=== PATIENT | female | born 1975 ===

== ENCOUNTER 2021-10-28 12:58 | Outpatient (CLI) | payer OTHER, SELFPAY ==
--- NOTE | 2021-10-28 13:20 | CRLHL7_ITS ---
For Patients: As a result of the Cures Act, medical imaging exams and procedure reports are released immediately into your electronic medical record. You may view this report before your referring provider. If you have questions, please contact your health care provider. BILATERAL DIGITAL SCREENING MAMMOGRAM WITH COMPUTER-AIDED DETECTION AND TOMOSYNTHESIS CLINICAL HISTORY: Routine screening exam. COMPARISON: None. TECHNIQUE: Digital mammogram in CC and MLO projections including computer-aided detection (CAD) and tomosynthesis. BREAST COMPOSITION: The breasts are heterogeneously dense, which may obscure small masses FINDINGS: RIGHT Breast: No suspicious findings. LEFT Breast: Focal asymmetric density upper-outer quadrant 5 cm from the nipple. IMPRESSION: LEFT breast asymmetry/mass. RECOMMENDATIONS: Additional mammographic views of the LEFT breast including 3D spot-compression CC/MLO. LEFT breast ultrasound may also be required. The [facility] will contact the patient for follow-up. BI-RADS Category 0: Incomplete: Need Additional Imaging Evaluation and/or Prior Mammograms for Comparison. Dictated by Robi Funez MD @ 10/29/2021 8:34:38 AM/maida NICOLLE/Dictated by: Robi Funez MD @ 10/29/2021 8:34:00 AM (Electronically Signed)
== END 2021-10-28 12:59 | disposition home or self-care (01) ==
LOC: MAMMO 13:03
PROVIDERS: PCP Family Medicine; Visit Provider Nurse Practitioner Family
DX: Z12.31 Encounter for screening mammogram for malignant neoplasm of breast (principal); R92.2 Inconclusive mammogram; N63.20 Unspecified lump in the left breast, unspecified quadrant
CPT/HCPCS: 77063; 77067

== ENCOUNTER 2021-11-18 09:30 | Outpatient (CLI) | payer OTHER, SELFPAY ==
--- OUTSIDE RECORDS SUMMARY | 2021-11-18 09:32 | XMS_ITS | Clinical Summary ---
:1975 Author Organization [facility] [place] [address] Care Team Providers Name Role Phone Ben Murrell MD Primary Care Provider Allergies Active Allergy Reactions Severity Noted Date Comments Amlodipine Edema 09/20/2018 Medications Medication Sig Dispensed Refills Start Date End Date Status lisinopriL (PRINIVIL; Take 1 tablet by 90 tablet 3 10/26/2019 Active ZESTRIL) 10 mg mouth once daily. tabletIndications: Essential hypertension triamterene-hydrochloro Take 1 tablet by 90 tablet 3 0 Active thiazide, 37.5-25 mg, mouth every (MAXZIDE-25) 37.5-25 mg morning. tabletIndications: Essential hypertension Active Problems Problem Noted Date Essential hypertension 10/28/2017 Abnormal maternal glucose tolerance, antepartum 2008 Supervision of other normal 02/19/2008 Encounters Date Type Specialty Care Team Description 10/28/2021 Orders Only Scanner <No scans attac hed> 09/17/2021 Lab Requisition Ivania Wheat NP from Last 3 Months Immunizations Name Administration Dates Next Due Influenza, IIV3 (Age >=3 years) 01/22/2008 Tdap 08/13/2008 Family History Medical History Relation Name Comments Diabetes Father Heart attack Father Stroke Maternal Grandfather Diabetes Mother Relation Name Status Comments Father Maternal Grandfather Mother Social History Tobacco Use Types Packs/Day Years Used Date Never Smoker Smokeless Tobacco: Never Used Tobacco Cessation: Counseling Given: Yes Alcohol Use Standard Drinks/Week Comments No 0 (1 standard drink = 0.6 oz pure alcoho l) Sex Assigned at Date Recorded Not on file Obstetrics History Para Term AB IAB SAB Ectopic Multiple Living Live Births 2 1 1 1 Date Outcome GA Total Labor/2nd/3rd Weight Sex Delivery Anes PTL Maryam A 1 A5 Name Clin Labor 02/24 Term 40w 12h 00m/ 2.27 kg M Vag Le one /2000 0d (5 lb) l Last Filed Vital Signs Vital Sign Reading Time Taken Comments Blood Pressure 134/81 10/26/2019 7:38 AM CDT Pulse 63 10/26/2019 7:38 AM CDT Temperature 36.5 ??C (97.7 ??F) 10/26/2019 7:38 AM CDT Respiratory Rate - - Oxygen Saturation 98% 10/26/2019 7:38 AM CDT Inhaled Oxygen Concentration - - Weight 65.8 kg (145 lb) 10/26/2019 7:38 AM CDT Height 152 cm (4' 11.84) 10/26/2019 7:38 AM CDT Body Mass Index 28.47 10/26/2019 7:38 AM CDT Plan of Treatment Health Maintenance Due Date Last Done Comments COVID-19 vaccine series (#1) 1975 Hepatitis C screening for age 1202/05/1995 18-79 Tetanus booster 08/13/2018 08/13/2008 Depression screening for age 12+ 09/21/2019 09/20/2018, 02/2017, 09/14/2017, Additional history exists BMI (ht and wt on same day) for 10/25/2020 10/26/2019, 08/0 08/2018, age 18+ 10/28/2017, Additional history exists Influenza for age 9-49 10/15/2021 01/22/2008 Pap test for age 21-65 09/17/2024 09/17/2021, 09/17/2021, 12/18/2014, Additional history exists Tdap Completed 08/13/2008 Procedures Procedure Name Priority Date/Time Associated Comments Diagnosis SCAN-MAMMOGRAPHY 10/28/2021 12:00 AM Resu lts for this REPORT CDT procedure are i n the results section. TRACK DRESSER THIN PREP PAP Routine 09/17/2021 10:30 AM Res ults for this DIAGNOSTIC IMAGED CDT procedure are in the results section. HPV THIN PREP Routine 09/17/2021 10:30 AM Results for this CDT procedure are i n the results section. from Last 3 Months Results SCAN-MAMMOGRAPHY REPORT (10/28/2021 12:00 AM CDT) Narrative This result has an attachment that is no t available. Scanner OTHER TRACK DRESSER THIN PREP PAP DIAGNOSTIC IMAGED (09/17/2021 10:30 AM CDT) Component Value Ref Test Analysis Performed At [facility] gist Range Method Time Signature Case Report Gynecologic Cytology Report ? Case: [id number] ? 10/05/2021 [facility] Authorizing Provider: ??Ivania Ramos, RESIZER OPERATOR ? Collected: ? 09/17/2021 1030 ? 1:20 PM HEALTH Ordering Location: ? [facility] ?Received: ?09/18/2021 1103 ? CDT LABOR ATORY[facility] ? ENTRAL First Screen: ? Alden, Xon Lyle ? LABORATORY Specimen: ?TRACK DRESSER ThinPrep Vial Diagnostic, Cervical/Vaginal ? INTERPRETATION NEGATIVE FOR (none) 10/05/2021 [facility] E lectronically /RESULT INTRAEPITHELIAL 1:20 PM HEALTH sign ed by Alden, LESION OR CDT LABORATORY-C Xon Min g on MALIGNANCY (NIL) ENTRAL 09/15 at LABORATORY 1:20 PM SPECIMEN Satisfactory for evaluation 10/05/2021 [facility] ADEQUACY No endocervical component seen 1:20 PM HEALTH CDT LABORATORY-C ENTRAL LABORATORY HPV REQUEST HPV and PAP 10/05/2021 [facility] 1:20 PM HEALTH CDT LABORATORY-C ENTRAL LABORATORY Last Pap First Pap/Unknown 10/05/2021 [facility] Result 1:20 PM HEALTH CDT LABORATORY-C ENTRAL LABORATORY Rutledge Bx Done No 10/05/2021 [facility] Today 1:20 PM HEALTH CDT LABORATORY-C ENTRAL LABORATORY Additional 10/05/2021 [facility] Information 1:20 PM HEALTH CDT LABORATORY-C ENTRAL LABORATORY Comment: Interpreted at [facility], Central Laboratory - [address], [place] [address] Automated Review Successful 10/05/2021 1:20 PM CDT [facility] LABORATORY-CENTRAL L ABORATORY Comment: Specimen processed successfully by automated manager it security device, ThinPrep Imaging System, [employer] ANCILLARY TESTING HPV Ordered, 10/05/2021 1:20 PM [facility] TRACK DRESSER Please see CDT LABORATORY-CENTRAL separate report LABORATORY Note The pap test is a 10/05/2021 1:20 PM [facility] screening CDT LABORATORY-CENTRAL technique, not a LABORATORY diagnostic procedure. It is used primarily to screen for squamous cancers and precursor lesions. Published studies have shown that it is subject to both false negative and false positive results. The pap test should not be used as the sole means to diagnose or exclude pre-malignant and malignant lesions. Specimen Anatomical Collection Method Collection Time Receive d Time (Source) Location / / Volume Laterality Other 09/17/2021 10:30 09/18/2021 (Cervical/Vagina AM CDT 11:03 AM CD T l) Ivania Wheat NP PATHOLOGY/CYTOLOGY Performing Organization Address City/State/ZIP Code Phon e Number [facility] [employer] [address] [place] [address] LABORATORY-CENTRAL 2000 LABORATORY HPV HIGH RISK (09/17/2021 10:30 AM CDT) Analysis Performed At Patho logist Time Signature TYPE 16 Negative Negative 09/23/2021 [facility] 11:45 AM CDT LABORATORY-SALLY TRAL LABORATORY TYPE 18 Negative Negative 09/23/2021 [facility] 11:45 AM CDT LABORATORY-SALLY TRAL LABORATORY OTHER HIGH Negative Negative 09/23/2021 [facility] RISK TYPES 11:45 AM CDT LABORATORY-SALLY TRAL LABORATORY Specimen Anatomical Collection Method Collection Time Receive d Time (Source) Location / / Volume Laterality Other 09/17/2021 10:30 09/21/2021 4:09 (Cervical/Vagina AM CDT PM CDT l) Narrative [facility] LABORATORY-CENTRAL LABORAT ORY - 09/23/2021 11:45 AM CDT HPV types 16, 18, 31, 33, 35, 39, 45, 51, 52, 56, 58, 59, 66 and 68 DNA were undetectable or below the pre-set threshold. Methodology: Sara Hossein 4800 HPV Test Ivania Wheat NP MICROBIOLOGY Performing Organization Address City/State/ZIP Code Phon e Number [facility] [address] [place] [address] [place] [address] LABORATORY-CENTRAL 2000 LABORATORY from Last 3 Months Care Teams Data Entry Manager Relationship Specialty Start Date End Date Ben Murrell MD PCP - General 06/19/07 [address] [place] [address]
--- OUTSIDE RECORDS SUMMARY | 2021-11-18 09:32 | XMS_ITS | Encounter Summary ---
:1975 Author Reason for Visit None recorded. Assessment and Plan 1. Mammographic breast mass Relayed results of mammogram including presence of dense tissue which can make discernment of concern more difficult. W ill proceed with diagnostic mammogram and u/s per recs of VICK. She is agreeable to pro ceeding. She had no further questions. ? US, breast, unilateral - left; d/t ma ss found on routine mammogram ? MAMMO, diagnostic, digital, unilatera l - Left; d/t mass found on routine mammogram Discussion Note: None recorded.Patient educational handouts: No information available. Plan of Care Reminders Provider Appointments Established Patient 01/26/2022 Kervin Rodriguez MD 6:00PM Lab None recorded. ? ? Referral None recorded. ? ? Procedures None recorded. ? ? Surgeries None recorded. ? ? Imaging US, Breast, Unilateral 11/05/2021 ? ? MAMMO, Diagnostic, Digital, 11/05/2021 ? Unilateral Medications Name Start Date ? ? lisinopril 10 mg tablet ? TAKE ONE TABLET BY MOUTH EVERY DAY triamterene 37.5 mg-hydrochlorothiazide 25 mg tablet ? TAKE ONE TABLET BY MOUTH EVERY DAY Medications Administered None recorded. Vitals None recorded. Results Lab Results None recorded. Allergies Code Code System Name Reaction Severity Onset NKDA ? ? ? Problems Name Status Onset Date Source ? Essential Hypertension Active 07/28/2021 ? Procedures Date Name Performed by ? 11/05/2021 US, Breast, Unilateral Information not a vailable 11/05/2021 MAMMO, Diagnostic, Digital, Unilateral I nformation not available Notes: Tubal ligation after delivery Vaccine List Notes: vaccinated Social History Do you feel safe at home? Y Family History Relation Problem Onset Age of Age Notes Mother Diabetes mellitus (No Information) N/A (No No kishor) Father Diabetes mellitus (No Information) N/A all si b have diabetes Functional Status Unknown. Past Encounters 11/05/2021 Mammographic Breast Mass Ivania Wheat, ANP-BC: [address], [place] [address], Ph. History of Present Illness Note: <div>Author called pt with Vipin interpreting to discuss abn finding on mammogram result. </div> Review of Systems None recorded. Physical Exam None recorded.
--- OUTSIDE RECORDS SUMMARY | 2021-11-18 09:32 | XMS_ITS ---
:1975 Author Care Team Providers Name Role Phone Kervin Rodriguez Primary Care Provider Unavailable Allergies Code Code System Name Reaction Severity Status Onset NKDA ? Medications Name Status Start Date Stop Date ? ? lisinopril 10 mg tablet Active ? Not avai lable TAKE ONE TABLET BY MOUTH EVERY DAY triamterene 37.5 mg-hydrochlorothiazide 25 mg tablet Active ? Not available TAKE ONE TABLET BY MOUTH EVERY DAY Problems Name Status Onset Date Source ? Essential Hypertension Active 07/28/2021 ? Procedures Date Name Performed by ? 09/17/2021 MAMMO, Screening, Bilateral Information not available 11/05/2021 US, Breast, Unilateral Information not a vailable 11/05/2021 MAMMO, Diagnostic, Digital, Unilateral I nformation not available Notes: Tubal ligation after delivery Results Lab Results Date Name Specimen Result Interpretation Description Value Range Status Address ? 09/17/2021 Pap, LB + Reflex hr HPV ? No observation re corded. ? ? ? 07/01/2021 TSH, Serum or Plasma ? No observation recor ded. ? ? ? 07/01/2021 CBC W/ Auto Diff ? No observation recorded. ? ? ? 07/01/2021 CMP, Serum or Plasma ? No observation recor ded. ? ? ? 07/01/2021 Lipid Panel, Serum ? No observation recorde d. ? ? ? Past Encounters 11/05/2021 Mammographic Breast Mass SUSAN Enrique-BC: [address], [place] [address], Ph. 09/17/2021 Gynecologic Examination JOSE EnriqueBC: [address] [place] [address], Ph. 07/28/2021 Adult Health Examination; Essential Hype rtension Kervin Rodriguez MD: [address] [place] [address], Ph. 12/04/2020 Essential Hypertension Kervin Rodriguez MD: [address] [facility] [place] [address], Ph. Social History None recorded. Vaccine List Notes: vaccinated Plan of Care Patient Instructions avoid salt, losing wieght will reduce d iabetes risk Reminders Provider Appointments None recorded. ? ? Lab None recorded. ? ? Referral None recorded. ? ? Procedures None recorded. ? ? Surgeries None recorded. ? ? Imaging None recorded. ? ? Vitals 09/17/2021 10:00AM [facility] OFFICE VISIT Height Weight BMI Blood Pressure 5 ft 141 lbs 27.5 kg/m2 137/82 mm[Hg] 07/28/2021 06:00PM Don't use: Established 30 Weight Blood Pressure 145 lbs 126/79 mm[Hg] 12/04/2020 09:40AM Established patient 20 Weight Blood Pressure 147 lbs 137/87 mm[Hg]
--- OUTSIDE RECORDS SUMMARY | 2021-11-18 09:33 | XMS_ITS | Encounter Summary ---
:1975 Author Reason for Visit None recorded. Assessment and Plan 1. Gynecologic examination No reported or observed findings. F/u a s scheduled w/Dr. Rodriguez in January. ? pap, LB + reflex HR HPV ? MAMMO, screening, bilateral Discussion Note: None recorded.Patient educational handouts: No information available. Plan of Care Reminders Provider Appointments Established Patient 01/26/2022 Kervin Gene Rodriguez MD 6:00PM Lab Pap, LB + Reflex hr HPV 09/17/2021 ? Referral None recorded. ? ? Procedures None recorded. ? ? Surgeries None recorded. ? ? Imaging MAMMO, Screening, Bilateral 09/17/2021 ? Medications Name Start Date ? ? lisinopril 10 mg tablet ? TAKE ONE TABLET BY MOUTH EVERY DAY triamterene 37.5 mg-hydrochlorothiazide 25 mg tablet ? TAKE ONE TABLET BY MOUTH EVERY DAY Medications Administered None recorded. Vitals Height Weight BMI Blood Pressure 5 ft 141 lbs 27.5 kg/m2 137/82 mm[Hg] Results Lab Results Date Name Specimen Result Interpretation Description Value Range Status Address ? 09/17/2021 Pap, LB + Reflex hr HPV ? No observation re corded. ? ? ? Allergies Code Code System Name Reaction Severity Onset NKDA ? ? ? Problems Name Status Onset Date Source ? Essential Hypertension Active 07/28/2021 ? Procedures Date Name Performed by ? 09/17/2021 MAMMO, Screening, Bilateral Information not available Notes: Tubal ligation after delivery Vaccine List Notes: vaccinated Social History Do you feel safe at home? Y Family History Relation Problem Onset Age of Age Notes Mother Diabetes mellitus (No Information) N/A (No No kishor) Father Diabetes mellitus (No Information) N/A all si b have diabetes Functional Status Unknown. Past Encounters 09/17/2021 Gynecologic Examination SUSAN Enrique-BC: [address] [place] [address], Ph. History of Present Illness Note: <div>Barbara interpreted. Pt notes no concerns. </div><div>
46 y.o. Fpresents for [facility] visit</div><div>
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 </div><div>Gynecologic ROS: denies vaginal discharge, itching, odor, irritation, pelvic pain, abnormal bleeding. May a little itching around time of period, but non-problematic. </div><div>She had tubal ligation. </div><div>
</div> Review of Systems None recorded. Physical Exam ? Annual Nat Instructor Exam Reported By: Patient Constitutional: General Appearance: healthy- appearing, well-nourished, well-developed Psychiatric: Orientation: to time, to day[place] ce, to person. Mood and Affect: active and alert, normal mood, norm al affect Breast: Inspection/Palpation: no ski n changes, no abnormal secretions, nipple appearance normal, no tenderness, no distinct masses Female Genitalia: Vulva: no masses, no atrophy , no lesions. Vagina: no tenderness, no erythema, no abnormal vagina l discharge, no vesicle(s) or ulcers, no cystocele, no rectocele, normal atrophy. Cervix: grossly normal, no discharge, no cervical mo tion tenderness. Uterus: normal size, normal shape, midline, no ut erine prolapse, mobile, non-tender. Bladder/Urethra: normal meat us, no urethral discharge, no urethral mass, bladder non distended. Adnexa/Parametria: no parametrial tenderness, no parametrial m ass, no adnexal tenderness, no ovarian mass Lymph Nodes: Palpation: non tender subman dibular nodes, non tender axillary nodes, non tender inguinal n odes Notes: Weight is stable. VSS.
--- NOTE | 2021-11-18 09:45 | CRLHL7_ITS ---
For Patients: As a result of the Cures Act, medical imaging exams and procedure reports are released immediately into your electronic medical record. You may view this report before your referring provider. If you have questions, please contact your health care provider. LEFT DIAGNOSTIC MAMMOGRAM WITH COMPUTER-AIDED DETECTION AND TOMOSYNTHESIS LEFT BREAST ULTRASOUND CLINICAL HISTORY: Possible asymmetry. TECHNIQUE: These mammographic images have been obtained using full-field digital technique. These mammographic images were interpreted with the benefit of computer-aided detection. Breast Tomosynthesis was used in this interpretation. COMPARISON FILM: 10/28/2021 BREAST COMPOSITION: The breasts are heterogeneously dense, which may obscure small masses. FINDINGS: Spot compression views demonstrate spreading out of the glandular tissue. Ultrasound over the superior half of the LEFT breast from 9-3 o???clock position demonstrates a cyst at the 9 o???clock position 5 cm from the nipple measuring 1.1 x 0.5 x 1.1 cm and is felt to account for the mammographic findings. In either event, there are no suspicious sonographic findings in the upper half of the breast. IMPRESSION: LEFT breast cyst 9 o???clock position 5 cm from the nipple is felt to account for the mammographic findings. No suspicious sonographic findings seen. ASSESSMENT: BI-RADS Category 2: Benign RECOMMENDATION: Recommend return to yearly screening mammography. This was via an electronic assembly. A lay language report of this examination will be provided to the patient. Krystle Art M.D. Diagnostic/Breast Radiologist [email or web address] CAROLYN/yanet PT/Dictated by: Krystle Art MD @ 11/18/2021 11:16:00 AM (Electronically Signed)
--- NOTE | 2021-11-18 10:15 | CRLHL7_ITS ---
For Patients: As a result of the Century Cures Act, medical imaging exams and procedure reports are released immediately into your electronic medical record. You may view this report before your referring provider. If you have questions, please contact your health care provider. PLEASE SEE LEFT DIAGNOSTIC MAMMOGRAM OF SAME DAY. CRL:yanet PT/Dictated by: Krystle Art MD @ 11/18/2021 11:12:00 AM (Electronically Signed)
== END 2021-11-18 09:31 | disposition home or self-care (01) ==
LOC: MAMMO 09:31
PROVIDERS: PCP Family Medicine; Visit Provider Nurse Practitioner Family
DX: R92.8 Other abnormal and inconclusive findings on diagnostic imaging of breast (principal); N60.02 Solitary cyst of left breast; R92.2 Inconclusive mammogram
CPT/HCPCS: 76642; 77065; G0279

== ENCOUNTER 2023-07-05 05:20 | Emergency (ER) | payer OTHER, SELFPAY ==
[2023-07-05 05:40] VITALS: BP 139/76; PULSE 69; RESP 18; TEMP 36.2; O2SAT 99; BMI 28.3
--- NOTE | 2023-07-05 05:57 | PC.NURSE ---
urine obtained, hematuria.
--- NOTE | 2023-07-05 06:09 | CT_ITS ---
Patient: ELIZABETH BRYAN Facility:?[facility] Patient ID:?[id number] Site Patient ID:?[id number]. Site :?1975 Study:?CT-Abdomen/Pelvis W/O-07/05/2023 6:42:19 AM Ordering Physician:SHAAN Final Report: INDICATION: LT FLANK PAIN TECHNIQUE: CT abdomen and pelvis without contrast, stone protocol. COMPARISON: None. FINDINGS: Kidney/ureters: Left UPJ/proximal ureter 5 mm calculus resulting in mild hydronephrosis and perinephric inflammation. Additional nonobstructing left intrarenal calculus measuring 4 mm is noted. Liver/gallbladder/bile ducts: Hepatic steatosis. Gallbladder is normal without visualized stones or inflammation. No biliary dilatation. Spleen/pancreas/adrenal glands: The spleen, adrenal glands and pancreas are within normal limits. GI tract: No bowel obstruction. Colonic diverticulosis without evidence of diverticulitis. Normal appendix. Abdominal wall/omentum/peritoneum: No free air or significant free fluid. No mass or inflammation. Lymph nodes: No lymphadenopathy. Pelvis: Left ovarian cyst measuring 2.7 centimeter. Lower chest: Unremarkable. IMPRESSION: Left UPJ/proximal ureter 5 mm calculus resulting in mild hydronephrosis and perinephric inflammation. Additional nonobstructing left intrarenal calculus measuring 4 mm is noted. Colonic diverticulosis without evidence of diverticulitis. Please note that all CT scans at this facility use dose modulation, iterative reconstruction, and/or weight-based dosing when appropriate to reduce radiation dose to as low as reasonably achievable. Dictated by Jadon Cortez MD @ 07/05/2023 7:09:38 AM Signed by:?Jadon Cortez MD @07/05/2023 7:09:38 AM (Electronic Signature)
[2023-07-05 06:11] LABS: Appearance Urine Cloudy (Clear); Bilirubin Urine 1+ (Negative); Blood Urine 3+ (Negative); Color Urine Yellow (Yellow); Glucose Urine Negative (Negative); Ketones Urine Negative (Negative); Leukocyte Esterase Urine Negative (Negative); Nitrite Urine Negative (Negative); Protein Urine 2+ (Negative); Specific Gravity Urine >= 1.030 (1.000-1.030); Urobilinogen Urine 0.2 (0.2-1.0); pH Urine 5.5 (5.0-8.5)
--- NOTE | 2023-07-05 06:11 | ED.GENADULT ---
HPI - General Adult General Chief complaint: Abdominal Pain Stated complaint: left side abdominal pain Time Seen by Provider: 07/05/23 05:46 Source: patient and family Mode of arrival: ambulatory Limitations: language barrier (Patient requests her son to interpret but was offered a formal fleshing machine operator which she declined.) History of Present Illness HPI narrative: 48-year-old female reports that she woke at 3:00 a.m. which is about 2 hours prior to arrival with sharp pain in the left flank area radiating down to the left groin region. No prior history of similar symptoms. No prior history of kidney stones. No trauma or injury. No dysuria, no vaginal discharge, denies chance of . Has had tubal ligation. Did not try taking any medication to help with her symptoms. No difficulties with her bowels. Did vomit x1. No upper abdominal pain. No prior history of gallbladder disease, gallstones or pancreatitis. Appetite has been normal. Symptoms came on suddenly. Past medical history notable for hypertension. Reports that she takes lisinopril and triamterene/hydrochlorothiazide for this, well controlled. Nonsmoker. Denies any prior surgeries besides a tubal ligation. ROS notable for the urinary/GI symptoms as above, otherwise denies times 12 systems. Related Data Home Medications Medication Instructions Recorded Confirmed lisinopril 10 mg tablet 10 mg PO DAILY 07/05/23 07/05/23 triamterene 37.5 1 tab PO DAILY 07/05/23 07/05/23 mg-hydrochlorothiazide 25 mg tablet Previous Rx's Medication Instructions Recorded ketorolac 10 mg tablet 10 mg PO Q6H PRN pain #20 tabs 07/05/23 ondansetron 4 mg disintegrating 4 mg PO Q8H PRN nausea and 07/05/23 tablet vomiting #10 tabs tamsulosin 0.4 mg capsule 0.4 mg PO DAILY #10 caps 07/05/23 Allergies Allergy/AdvReac Type Severity Reaction Status Date / Time No Known Drug Allergies Allergy Verified 07/05/23 05:45 Exam Const: Vital Signs, click to edit/add: Vital Signs - 24 hr 07/05/23 05:40 Temperature 97.2 F L Pulse Rate [Pulse Oximeter] 69 Respiratory Rate 18 Blood Pressure [Ri ght Upper Arm] 139/76 Pulse Oximetry 99 Oxygen Delivery Me thod Room Air Documenting provider has reviewed patient's vital signs: yes Common normals: no apparent distress General appearance: cooperative Other: Standing, shifts her weight uncomfortably. Good historian. HENMT: Common normals: normocephalic and oropharynx normal Head and scalp: normocephalic Eye: Common normals: conjunctivae normal General eye: normal appearance of both eyes Conjunctiva: conjunctiva(e) normal Neck & C-Spine: Common normals: full ROM and no lymphadenopathy Resp: Common normals: normal respiratory effort and no use of accessory muscles Effort & inspection: able to speak in complete sentences Cardio: Common normals: regular rate, regular rhythm, S1 normal heart sound, S2 normal heart sound and no murmurs Rate: regular rate Rhythm: regular rhythm Heart sounds: S1 normal and S2 normal GI: Common normals: Normal to inspection, nondistended, normoactive bowel sounds present, soft to palpation, non-tender, no hepatosplenomegaly and no masses Palpation: soft and no hepatosplenomegaly : Common normals: no CVA tenderness Bladder/kidney exam: no CVA tenderness Back & Pelvis: Common normals: no CVA tenderness Extremity: Common normals: normal to inspection and no pedal edema Neuro: Speech: speech normal Gait (neuro): normal gait Motor exam: no movement abnormalities noted Psych: Attitude: engaged Activity/motor behavior: appropriate eye contact Attention/concentration: attention grossly intact Insight: insight good Skin: Common normals: no rashes or lesions noted General skin exam: no rashes or lesions noted Course Course ED Course: Left flank pain radiating into abdomen suspicious for ureteral lithiasis. Differential diagnosis also including colitis, ovarian cyst, bowel obstruction, pancreatitis, gastritis, atypical presentation for gallbladder disease, appendicitis, musculoskeletal etiology, among others. Highly suspicious for kidney stone. Recommended Toradol, Zofran, CT of the abdomen and pelvis, basic labs. Will re-evaluate after CT. Reevaluation(s) Time of Reevaluation #1: 07:38 Reevaluation #1: Patient feeling much better after Toradol and Zofran. On my review, the left UVJ stone is 4.4 mm, Radiology measures it at 5 mm. Nonetheless, this should pass. There is only mild hydronephrosis. Otherwise labs look great. She is feeling much more comfortable. There are no signs of secondary bladder infection. We discussed symptomatic control with Toradol, Zofran. Will start Flomax hoping that it can cut down on spasm and may provide some ureteral dilation. Benefit outweighs the risk, though efficacy is low. Alarm symptoms reviewed such as infection, sepsis, severe obstruction that would warrant ED presentation. She verbalizes understanding and agreement. If she is not getting relief within a week, she should make a primary care follow-up. Any severe symptoms, back to the emergency department. Video fleshing machine operator used for discussion of results and plan. She verbalizes understanding and agreement, please see written instructions. Vital Signs Vital signs: Initial Vital Signs Temperature 97.2 F L 07/05/23 05:40 Temperature Source Temporal Artery Scan 07/05/23 05:40 Pulse Rate 69 07/05/23 05:40 Pulse Rhythm Regular 07/05/23 05:40 Respiratory Rate 18 07/05/23 05:40 Blood Pressure 139/76 07/05/23 05:40 Blood Pressure Mean 97 07/05/23 05:40 Blood Pressure Position Supine 07/05/23 05:40 Pulse Oximetry 99 07/05/23 05:40 Oxygen Delivery Method Room Air 07/05/23 05:40 Vital Signs Temperature 97.2 F L 07/05/23 05:40 Pulse Rate 69 07/05/23 05:40 Respiratory Rate 18 07/05/23 05:40 Blood Pressure 139/76 07/05/23 05:40 Pulse Oximetry 99 07/05/23 05:40 Oxygen Delivery Method Room Air 07/05/23 05:40 Temperature 97.2 F L 07/05/23 05:40 Pulse Rate 69 07/05/23 05:40 Respiratory Rate 18 07/05/23 05:40 Blood Pressure 139/76 07/05/23 05:40 Pulse Oximetry 99 07/05/23 05:40 Oxygen Delivery Method Room Air 07/05/23 05:40 Medications Administered Medications: Discontinued Medications Generic Name Dose Route Start Last Admin Trade Name Freq PRN Reason Stop Dose Admin Ketorolac Tromethamine 15 mg 07/05/23 06:09 07/05/23 06:50 Ketorolac 15 Mg/Ml Inj IVP 07/05/23 06:10 15 mg ONCE ONE Administration Ondansetron HCl 4 mg 07/05/23 06:09 07/05/23 06:49 Ondansetron 2 Mg/Ml Inj IVP 07/05/23 06:10 4 mg ONCE ONE Administration Medical Decision Making Lab Data Lab results reviewed: Yes I reviewed the patient's lab results Lab results narrative: Labs overall reassuring. Labs: Lab Results 07/05/23 07/05/23 07/05/23 Range/Units 05:46 05:55 06:09 WBC 8.89 (4.50-11.00) K/uL RBC 4.69 (4.00-5.20) m/uL Hgb 13.1 (12.0-16.0) gm/dL Hct 39.3 (33.0-51.0) % MCV 84 (80-100) fL MCH 28 (26-34) pg MCHC 33 (32-36) gm/dL RDW Coeff of Opal 15.1 (11.5-15.5) % Plt Count 377 (140-440) K/uL Neut % (Auto) 58.5 (42.0-72.0) % Lymph % (Auto) 34.8 (20-44) % Benzie % (Auto) 5.1 (0.0-11.0) % Eos % (Auto) 1.0 (0.0-7.0) % Baso % (Auto) 0.2 (0.0-3.0) % Neut # (Auto) 5.20 (1.7-7.0) K/uL Lymph # (Auto) 3.09 H (0.90-2.90) K/uL Benzie # (Auto) 0.50 (0.00-0.90) K/UL Eos # (Auto) 0.09 (0.00-0.50) K/uL Baso # (Auto) 0.02 (0.00-0.30) K/uL Abs Immat Gran (auto) 0.04 (0.00-0.30) K/uL Imm/Tot Granulo (auto) 0.4 % Sodium 137 (135-149) mmol/L Potassium 3.3 L (3.6-5.1) mmol/L Chloride 105 (96-114) mmol/L Carbon Dioxide 22 (20-32) mmol/L Anion Gap 10 (7-15) mEq/L BUN 22 (5-24) mg/dL Creatinine 0.7 (0.5-1.5) mg/dL Estimated Creat Clear 72.13 Estimated GFR 108 ml/min Glucose 143 H (60-115) mg/dL Calcium 8.9 (8.4-10.6) mg/dL Total Bilirubin 0.7 (0.1-1.5) mg/dL Direct Bilirubin 0.4 (0.0-0.5) mg/dL AST 29 (12-35) U/L ALT 29 (4-35) U/L Alkaline Phosphatase 122 (40-150) U/L C-Reactive Protein 0.9 (0.5-1.0) mg/dL Total Protein 7.8 (6.0-8.3) g/dL Albumin 4.6 (3.3-5.0) g/dL Lipase 150 (23-300) U/L Urine Color Yellow Cancelled (Yellow) Urine Appearance Cloudy A Cancelled (Clear) Urine pH 5.5 Cancelled (5.0-8.5) Ur Specific Anabel >= 1.030 Cancelled (1.000-1.030) Urine Protein 2+ A Cancelled (Negative) Urine Glucose (UA) Negative Cancelled (Negative) Urine Ketones Negative Cancelled (Negative) Urine Blood 3+ A Cancelled (Negative) Urine Nitrite Negative Cancelled (Negative) Urine Bilirubin 1+ A Cancelled (Negative) Urine Urobilinogen 0.2 Cancelled (0.2-1.0) Ur Leukocyte Esterase Negative Cancelled (Negative) Urine RBC 25-50 A (0-2) Urine WBC 5-10 A (0-5) Ur Squamous Epith Cells Moderate A (None-Few) Urine Bacteria Moderate A (None) Urine HCG, Qual Negative (Negative) Imaging Data CT scan - abdomen: Attestation: I have reviewed the pertinent imaging results. My impression: 4.4 mm stone at left UVJ area, incidental ovarian cyst Radiologist's impression: IMPRESSION: Left UPJ/proximal ureter 5 mm calculus resulting in mild hydronephrosis and perinephric inflammation. Additional nonobstructing left intrarenal calculus measuring 4 mm is noted. Discharge Plan Discharge Clinical Impression: Calculus of proximal left ureter Patient Disposition: Home w/ Parent or Adult Condition: Improved Instructions: Ureteral Stones (ED) Additional Instructions: As we discussed, you have a 4.4 mm kidney stone in your left proximal ureter. This has quite a ways to travel to reach your bladder. You do have 2 other stones in that kidney that are a little smaller and are showing no signs of problems. These may never cause you any trouble or you may have another episode similar to this if they start to move. Remember that the kidney stones only become symptomatic when they start to travel out of the kidney. As discussed, this stone should pass without the aid of surgery or a stent because of its size. It may take up to 2 weeks to do so. Would like for you to strain your urine so that you can tell more easily if it does past. It is not uncommon to pass say and like material as the stone may break up along the way. For pain, I recommend Toradol 10 mg up to every 6 hours for up to 5 days. I will also give your prescription for some Zofran which is an anti nausea medicine that you may need as well. You may also use Tylenol 1000 mg every 6 hours. I have also given you a prescription for tamsulosin which is a medication that helps dilate open the urinary path to allow the stone to possibly pass more easily. You will take this once daily and have already being given your dose for 2 day. If the stone has not passed in a week, please make a follow-up appointment with your primary care provider to be seen within 1 week after that. Sometimes, a referral to a urologist as needed. There are no signs of infection but if you start to have high fever, feel very ill or have other signs of complications, please come back to the emergency department. Drink lots of water to flush the stone through. [place] comentamos, tiene un c?lculo renal de 4,4 mm en el ur?ter proximal patel. Tiene bastantes caminos que recorrer para llegar a la vejiga. Tiene otros 2 c?lculos en li ri??n que son un poco m?s fausto?os y no muestran signos de problemas. Es posible que estos nunca le causen lore?n problema o que tenga otro episodio similar a leatha si comienzan a moverse. Recuerde que los c?lculos renales s?lo se vuelven sintom?ticos cuando comienzan a salir del ri??n. [place] se mencion?, leatha c?lculo debe desaparecer sin la ayuda de cirug?a o un stent debido a lerner arash?o. Puede tardar hasta 2 semanas en hacerlo. Me gustar?a que colaras tu orina para que puedas saber m?s f?cilmente si pasa. No es raro pasar por ejemplo un material similar, ya que la andrea puede romperse en el cyrus. Para el dolor, recomiendo Toradol 10 mg cada 6 horas otis un m?ximo de 5 d?as. Tambi?n le recetar? Zofran, que es un medicamento contra las n?useas que tambi?n puede necesitar. Tambi?n puede usar Tylenol 1000 mg cada 6 horas. Tambi?n le recet? tamsulosina, que es un medicamento que ayuda a dilatar el cyrus urinario para permitir que el c?lculo pase m?s f?cilmente. Lo mathew? whitney vez al d?a y ya le habr?n administrado lerner dosis otis 2 d?as. Si el c?lculo no casas desaparecido en whitney semana, programe whitney sheridan de seguimiento con lerner proveedor de atenci?n primaria para que lo atienda dentro de 1 semana despu?s. A veces, whitney derivaci?n a un ur?logo seg?n sea necesario. No hay signos de infecci?n, genia si comienza a tener fiebre tamia, se siente muy mal o tiene otros signos de complicaciones, regrese al departamento de emergencias. Roberta lynn agua para eliminar la andrea. Activity Level: Activity as Tolerated Discharge Diet: Regular Prescriptions: New ketorolac 10 mg tablet 10 mg PO Q6H PRN (Reason: pain) Qty: 20 0RF Rx Instructions: maximum total duration of 5 days from all oral, intranasal, or parenteral formulations ondansetron 4 mg tablet,disintegrating 4 mg PO Q8H PRN (Reason: nausea and vomiting) Qty: 10 0RF tamsulosin 0.4 mg capsule 0.4 mg PO DAILY Qty: 10 0RF Rx Instructions: Take once daily to help the stone pass. May discontinue early if the stone passes. No Action lisinopril 10 mg tablet 10 mg PO DAILY triamterene-hydrochlorothiazid 37.5-25 mg tablet 1 tab PO DAILY Follow Up/Referrals: Ben Murrell MD [Primary Care Provider] - Stand Alone Forms: [employer] Info Instructions
[2023-07-05 06:15] LABS: Bacteria Urine Moderate; RBC Urine 25-50 (0-2); Squamous Epithelial Cell Urine Moderate (None-Few)
[2023-07-05 06:21] LABS: Ur HCG Qualitative* Negative (Negative)
[2023-07-05 06:25] LABS: Basophils Absolute Auto 0.02 K/uL (0.00-0.30); Basophils Percent Auto 0.2 % (0.0-3.0); Eosinophils Absolute Auto 0.09 K/uL (0.00-0.50); Hematocrit 39.3 % (33.0-51.0); Hemoglobin* 13.1 gm/dL (12.0-16.0); Immature Granulocytes Abs Auto 0.04 K/uL (0.00-0.30); Immature Granulocytes Pct Auto 0.4 %; Lymphocytes Absolute Auto 3.09 K/uL (0.90-2.90); Lymphocytes Percent Auto 34.8 % (20-44); Mean Corpuscular HGB Conc 33 gm/dL (32-36); Mean Corpuscular Hemoglobin 28 pg (26-34); Mean Corpuscular Volume 84 fL (80-100); Monocytes Percent Auto 5.1 % (0.0-11.0); Neutrophils Percent Auto 58.5 % (42.0-72.0); Platelet Count* 377 K/uL (140-440); RDW Coefficient of Variation % 15.1 % (11.5-15.5); Red Blood Count 4.69 m/uL (4.00-5.20); White Blood Count* 8.89 K/uL (4.50-11.00)
[2023-07-05 06:26] LABS: Albumin* 4.6 g/dL (3.3-5.0); Chloride* 105 mmol/L (96-114)
[2023-07-05 06:27] LABS: Potassium* 3.3 mmol/L (3.6-5.1); Sodium* 137 mmol/L (135-149)
[2023-07-05 06:29] LABS: Creatinine* 0.7 mg/dL (0.5-1.5); Est. Creatinine Clearance* 72.13; Estimated Glomerular Filt Rate 108 ml/min; Slide Review Reflex No
[2023-07-05 06:30] LABS: Alanine Aminotransferase* 29 U/L (4-35); Alkaline Phosphatase* 122 U/L (40-150); Anion Gap 10 mEq/L (7-15); Aspartate Amino Transferase* 29 U/L (12-35); Bilirubin Direct* 0.4 mg/dL (0.0-0.5); Bilirubin Total* 0.7 mg/dL (0.1-1.5); Blood Urea Nitrogen* 22 mg/dL (5-24); Calcium* 8.9 mg/dL (8.4-10.6); Carbon Dioxide* 22 mmol/L (20-32); Glucose* 143 mg/dL (60-115); Lipase* 150 U/L (23-300); Total Protein* 7.8 g/dL (6.0-8.3)
[2023-07-05 06:33] LABS: C Reactive Protein* 0.9 mg/dL (0.5-1.0)
[2023-07-05] MEDS: ONDANSETRON 2 MG/ML inj 4 MG IVP (06:49)
[2023-07-05] MEDS: KETOROLAC 15 MG/ML inj IVP (06:50)
--- OUTSIDE RECORDS SUMMARY | 2023-07-05 06:50 | XMS_ITS | Clinical Summary ---
Author Name Unknown Organization [facility] Address [place], [place] [address] Care Team Providers Care Motorcycle Fabricator Name Role Phone Ben Murrell MD Primary Care Provider [phone] Allergies Active Allergy Reactions Criticality Noted Date Comments Amlodipine Edema 09/20/2018 Medications Medication Sig Dispensed Refills Start Date End Date Status lisinopriL (PRINIVIL; ZESTRIL) 10 mg tabletIndications:Esse ntial hypertension Take 1 tablet by mouth once daily. 90 tablet 3 10/26/2019 Active triamterene-hydrochlor othiazide, 37.5-25 mg, (MAXZIDE-25) 37.5-25 mg tabletIndications:Esse ntial hypertension Take 1 tablet by mouth every morning. 90 tablet 3 10/26/2019 Active Active Problems Problem Noted Date Diagnosed Date Essential hypertension 10/28/2017 Abnormal maternal glucose tolerance, antepartum 04/02/2008 Supervision of other normal 02/19/2008 Immunizations Name Administration Dates Next Due Influenza, IIV3 (Age >=3 years) 01/22/2008 Tdap 08/13/2008 Family History Medical History Relation Name Comments Diabetes Father Heart attack Father Stroke Maternal Grandfather Diabetes Mother Relation Name Status Comments Father Maternal Grandfather Mother Social History Tobacco Use Types Packs/Day Years Used Date Smoking Tobacco: Never Smokeless Tobacco: Never Tobacco Cessation:Counseling Given: Yes Alcohol Use Standard Drinks/Week Comments No 0 (1 standard drink = 0.6 oz pur e alcohol) PHQ-2 Answer Date Recorded PHQ-2 Score 0 09/20/2018 Social Connections Answer Date Recorded Frequency of Communication with Friends and Fami ly Not on file 2021 Financial Resource Strain Answer Date R ecorded Difficulty of Paying Living Expenses Not on file 2021 Difficulty of Paying Living Expenses Not on file 2021 Sex and Gender Information Value Date Recorded Sex Assigned at Not on file Gender Identity Not on file Sexual Orientation Not on file Obstetrics History Para Term AB IAB SAB Ectopic Multiple Livin g Live Births 2 1 1 1 Date Outcome GA Total Labor Labor/2nd/3rd Weight Sex Delivery Anes PTL Maryam A1 A5 Name Cl in 02/24 Term 40w 0d 12h 00m/ 2.27 kg (5 lb) Ara Miles l Last Filed Vital Signs Vital Sign Reading Time Taken Comments Blood Pressure 134/81 10/26/2019 7:38 AM CDT Pulse 63 10/26/2019 7:38 AM CDT Temperature 36.5 ??C (97.7 ??F) 10/26/2019 7:38 AM CD T Respiratory Rate - - Oxygen Saturation 98% 10/26/2019 7:38 AM CDT Inhaled Oxygen Concentration - - Weight 65.8 kg (145 lb) 10/26/2019 7:38 AM CDT Height 152 cm (4' 11.84) 10/26/2019 7:38 AM CDT Body Mass Index 28.47 10/26/2019 7:38 AM CDT Plan of Treatment Health Maintenance Due Date Last Done Comments Hepatitis C screening for age 18-79 1995 Tetanus booster 08/13/2018 08/13/2008 Depression screening for age 12+ 09/21/2019 09/20/2018, 09/14/2017, 09/14/2017, Additional history exists BMI (ht and wt on same day) for age 18+ 10/25/2020 10/26/2019, 09/20/2018, 10/28/2017, Additional history exists Colonoscopy through age 75 2022 Lipids for age 45-75 2022 12/19/2014 COVID-19 vaccine series ( season) 2022 Influenza for age 9-49 10/16/2023 01/22/2008 Mammogram for age 45-75 04/05/2024 04/05/2023, 10/28 Pap test for age 21-65 09/17/2024 2, 09/17/2021, 12/18/2014, Additional history exists HIV for age 15-65 Completed 10/26/2007 Tdap Completed 08/13/2008 Pneumococcal series for age 6-64 Aged Out No longer eligible based on patient's age to complete this topic Procedures Procedure Name Priority Date/Time Associated Diagnosis Comments SCAN-MAMMOGRAPHY REPORT 04/05/2023 12:00 AM DAM TENDER ASSISTANT HPV THIN PREP Routine 09/17/2021 10:30 AM CDT LIPID PANEL W REFLEX MEASURED LDL Routine 12/19/2014 8:39 AM DAM TENDER ASSISTANT Screening for lipoid disorders ANTI HIV 1/2 Routine 10/26/2007 9:50 AM CDT Supervision of Other Normal from Last 3 Months or Most Recently Relevant to Health Maintenance Results * SCAN-MAMMOGRAPHY REPORT (04/05/2023 12:00 AM DAM TENDER ASSISTANT) Anatomical Region Laterality Modality Other Scanner OTHER * HPV HIGH RISK (09/17/2021 10:30 AM CDT) TYPE 16 Negative Negative 09/23/2021 11:45 AM CDT [facility] TYPE 18 Negative Negative 09/23/2021 11:45 AM CDT [facility] OTHER HIGH RISK TYPES Negative Negative 09/23/2021 11:45 AM CDT [facility] Other (Cervical/Vagina l) 09/17/2021 10:30 AM CDT 09/21/2021 4:09 PM CDT Narrative [facility] - 09/23/2021 11:45 AM CDT HPV types 16, 18, 31, 33, 35, 39, 45, 51, 52, 56, 58, 59, 66 and 68 DNA were undetectable or below the pre-set threshold. Methodology: [employer] Hossein 4800 HPV Test Ivania Wheat NP MICROBIOLOGY [facility] [address] [place] [address], [place] * LIPID PANEL W REFLEX MEASURED LDL (12/19/2014 8:39 AM DAM TENDER ASSISTANT) CHOLESTEROL,TOTAL 179 100 - 199 mg/dL 12/19/2014 9:06 AM DAM TENDER ASSISTANT [facility] TRIGLYCERIDES 109 <150 mg/dL 12/19/2014 9:06 AM DAM TENDER ASSISTANT [facility] HDL CHOLESTEROL 53 >40 mg/dL 12/19/2014 9:06 AM DAM TENDER ASSISTANT [facility] NON-HDL CHOLESTEROL 126 <145 mg/dl 12/19/2014 9:06 AM DAM TENDER ASSISTANT [facility] CHOL/HDL RATIO 3.38 <4.50 12/19/2014 9:06 AM DAM TENDER ASSISTANT [facility] LDL CHOLESTEROL 104 <=130 mg/dL 12/19/2014 9:06 AM DAM TENDER ASSISTANT [facility] PATIENT STATUS FASTING 12/19/2014 9:06 AM DAM TENDER ASSISTANT [facility] Blood specimen (specimen) BLOOD SPECIMEN / Unknown Venipuncture / Unknown 12/19/2014 8:39 AM DAM TENDER ASSISTANT 12/19/2014 8:39 AM DAM TENDER ASSISTANT Ben Murrell MD CHEMISTRY Performing Organization Address City/[facility]/ZIP Co de Phone Number [facility] [address] [place] [address], * ANTI HIV 1/2 (10/26/2007 9:50 AM CDT) ANTI HIV 1/2 Non-reacti ve [facility] Blood specimen (specimen) BLOOD SPECIMEN / Unknown 10/26/2007 9:50 AM CDT 10/26/2007 9:43 AM CDT Jovanna Cornell BOWL SANDER SEND OUTS Performing Organization Address City/[facility]/ZIP Co de Phone Number [facility] INTERNAL ZIP [phone] [address] from Last 3 Months or Most Recently Relevant to Health Maintenance Care Teams Motorcycle Fabricator Relationship Specialty Start Date End Date Ben Murrell MD [address] [id number] PCP - General 06/19/07
--- OUTSIDE RECORDS SUMMARY | 2023-07-05 06:50 | XMS_ITS | Data Portability ---
Author Name Unknown Address [address] [place] [address] Phone [phone] Organization [facility] [employer] [facility] OFFICE Address [address] [place] [address] [place] [address] Assessment No assessment recorded. Plan of Treatment Reminders Order Date Submit Date Provider Last Modified By Organization Details Last Modified Time Details Appointments None recorded . Lab noninvas ginny colorect al cancer DNA + occult blood screenin g, QL, stool 2021 022 [email or web address] Not available 3 10:39:44 CMP, serum or plasma 2021 [email or web address] Not available 3 10:39:44 HbA1c (hemoglo bin A1c), blood 2021 022 [email or web address] Not available 3 10:39:45 pap, LB + reflex HR HPV 2021 EROS Not available 2 16:01:19 CMP, serum or plasma 2021 022 EROS Not available 2 10:11:21 CBC w/ auto diff 2020 021 EROS Not available 2 07:57:36 CMP, serum or plasma 2020 021 EROS Not available 2 15:42:34 lipid panel, serum 2020 021 EROS Not available 2 15:42:34 TSH, serum or plasma 2020 021 EROS Not available 15:42:34 Referral None recorded . Procedures None recorded . Surgeries None recorded . Imaging MAMMO, screenin g, bilatera l - [facility]ERT patient 2022 023 [email or web address] Not available 4 15:32:35 US, breast, unilater al - left; d/t mass found on routine mammogra m 2021 022 EROS Not available 16:28:48 MAMMO, diagnost ic, digital, unilater al - Left; d/t mass found on routine mammogra m 2021 022 EROS Not available 16:49:32 MAMMO, screenin g, bilatera l 2021 EROS Not available 09:30:19 Medication Orders lisinopr il 10 mg tablet [address], [address], 4 15:21:32 triamter juliette 37.5 mg-hydro chloroth iazide 25 mg tablet [address], [address], 4 15:21:25 lisinopr il 10 mg tablet [address], [address], 3 16:01:04 triamter juliette 37.5 mg-hydro chloroth iazide 25 mg tablet 2021 022 [facility], [address] [place] [address], [address], 3 16:33:38 lisinopr il 10 mg tablet [address], [address], 20:06:54 triamter juliette 37.5 mg-hydro chloroth iazide 25 mg tablet [address], [address], 20:06:54 lisinopr il 10 mg tablet [address], [address], 10:47:35 triamter juliette 37.5 mg-hydro chloroth iazide 25 mg tablet [address], [address], 10:47:35 Patient TargetsNo targets recorded. Patient Instructions Encounter Date Encounter Id Patient Instructions Last Modified By Organization Details Last Modified Time 01/26/2022 [id number] avoid salt, warc h for lightheadedness, call if sx of menopause need attention roland Not available 01/28/2022 10:02:21 need to have glucose followed regularly because of family hx and slightly elevated glucoses roland Not available 01/28/2022 10:02:38 07/28/2021 [id number] avoid salt, losing wieght will reduce diabetes risk roland Not available 07/28/2021 20:08:29 prefers to loose wieght and not take med for glucose of 106, follow up glucose in 6 months roland Not available 07/28/2021 20:09:59 12/04/202039049 prob just needs mammogram roland Not available 12/04/2020 11:01:09 Reason for Referral None Reported. Results Created Date Observation Date Name Description Value Unit Range Abnormal Flag LastModifiedBy Organization Detail LastModifiedTime 01/19/2001/18/2022 CMP, serum or plasm a creatinine 0.9 Not Available Not Available 1 03/21/2021 18:30:44 01/19/20 22 01/18/2022 CMP, serum or plasm a ALT 18 Not Available Not Available 06/2021 18:30:44 10/31/19 22 10/28/2021 MAMMO , scree lore, bilat eral No observ ation record ed. [facility] [address] [place], [address], 11/05/2021 12:04:08 10/31/19 22 10/28/2021 MAMMO , scree lore, bilat eral No observ ation record ed. [facility] [address] [place], [address], 11/05/2021 12:04:08 11/05/19 22 10/28/2021 MAMMO , scree lore, bilat eral No observ ation record ed. [facility] [address] [place], [address], 12/21/2021 14:17:21 11/19/19 22 11/18/2021 US, breas t, unila teral No observ ation record ed. [facility] [address] [place], [address], 12/23/2021 14:35:23 11/19/1911/18/2021 MAMMO , diagn ostic , digit al, unila teral No observ ation record ed. [facility] [address] [place], [address], 12/23/2021 14:36:04 07/01/19 24 04/05/2023 MAMMO , scree lore, bilat eral No observ ation record ed. Not Available 07/01/2023 14:40:58 Result Notes None recorded. Problems Name Status Onset Date Resolution Date Notes Provider Name and Address Organization Details Recorded Time Essential hypertension Active 07/29/19 Kervin Rodriguez MD [address] [place], [address], [facility] 07/28/2021 20:02:42 Problem Notes None recorded. Procedures Surgical History None recorded. Imaging Results Imaging Date Name Status LastModified by Organiz ation Details LastModified Time 10/28/2021 MAMMO, screening, bilateral completed [facility] [address] [place], [address], 11/05/2021 12:04:08 10/28/2021 MAMMO, screening, bilateral completed [facility] [address] [place], [address], 11/05/2021 12:04:08 10/28/2021 MAMMO, screening, bilateral completed [facility] [address] [place], [address], 12/21/2021 14:17:21 11/18/2021 US, breast, unilateral completed [facility] [address] [place], [address], 12/23/2021 14:35:23 11/18/2021 MAMMO, diagnostic, digital, unilateral completed [facility] [address] [place], [address], 12/23/2021 14:36:04 04/05/2023 MAMMO, screening, bilateral active Information not available 07/01/2023 14:40:58 Procedure Notes None recorded. Medical Equipment None Reported. Allergies No known drug allergies Medications Name Sig Start Date Stop Date Status Note LastModified by Organization Details LastModified Time lisinopril 10 mg tablet TAKE ONE TABLET BY MOUTH EVERY DAY 023 active Not Available Not Available Not Avai lable triamterene 37.5 mg-hydrochlor othiazide 25 mg tablet TAKE ONE TABLET BY MOUTH EVERY DAY 023 active Not Available Not Available Not Avai lable Vitals Date Recorded Body weight Systolic blood pressure Diastolic blood pressure Provider Name and Address Organization Details Last Updated DateTime 12/04/2020 95863.08 g 137 mm[Hg] 87 mm[Hg] Kervin Rodriguez MD [address] [place], [address], [facility] [employer] 12/04/2020 10:56:56 Date Recorded Body weight Systolic blood pressure Diastolic blood pressure Provider Name and Address Organization Details Last Updated DateTime 07/28/2021 24157.89 g 126 mm[Hg] 79 mm[Hg] Kervin Rodriguez MD [address] [place], [address], [facility] [employer] 07/28/2021 19:59:34 Date Recorded Body height Body mass index (BMI) Body weight Heart rate Systolic blood pressure Diastolic blood pressure Provider Name and Address Organization Details Last Updated DateTime 2 152.4 cm 27.5 kg/m2 93969.5 2 g 58 /min 137 mm[Hg] 82 mm[Hg] SUSAN OLIVARES- [address] [place], [address], [facility] [employer] 2 11:51:15 Date Recorded Body height Body mass index (BMI) Body weight Systolic blood pressure Diastolic blood pressure Provider Name and Address Organization Details Last Updated DateTime 01/26/2022 152.4 cm 27.3 kg/m2 32900.93 g 136 mm[Hg] 82 mm[Hg] Kervin Rodriguez MD [address] [place], [address], [facility] [employer] 2 10:04:22 Date Recorded Body height Body mass index (BMI) Body weight Respiratory rate Body temperature Oxygen saturation Oxygen saturation in Arterial blood by Pulse oximetry Heart rate Systolic blood pressure Diastolic blood pressure Provider Name and Address Organization Details Last Updated DateTime 3 157.48 cm 28.3 kg/m2 45285.7 4 g 22 /min 97.2 [degF] 99 % 99 % 77 /min 132 mm[Hg] 83 mm[Hg] Shanda Taylor [facility] 14:18:27 Social History Question Answer Notes LastModified by Organizat ion Details LastModified Time Are You Currently Employed? Yes [employer] Information not available 01/26/2022 Do You Feel Safe At Home? Yes Information not available 07/28/2021 Do You Feel Stressed (tense, Restless, Nervous, Or Anxious, Or Unable To Sleep At Night)? [id number] Information not available 01/26/2022 Sex: Female Functional Status None recorded. Mental Status None recorded. Family History Relationship Description Onset Age of this Age Resolved Age Notes Mother Diabetes mellitus Father Diabetes mellitus al l sib have diabetes Notes:father had a kidney tr ansplant Medical History No medical history recorded. Gynecological History Statement/Question Response Menses Monthly Y Date of Last Pap Smear Sexual Problems? N Current Control Method Tubal Ligat ion Date of Last Mammogram Date of LMP 08/31/2021 Obstetrics History GPAL:G 0 P 0 0 0 0 Past Encounters Encounter ID Performer Location Encounter Start Date Encounter Closed Date Diagnosis/Indication Diagnosis SNOMED-CT Code [id number] Kervin Rodriguez MD [facility] [address] [place] [address] 12/04/2020 10:26:51 12/04/2020 11:26:48 Essential hypertension 97638334 [id number] Kervin Rodriguez MD [facility] [address] [place] [address] 07/28/2021 18:35:15 07/28/2021 19:22:06 Adult health examination 219959837 Essential hypertension 71154808 [id number] DINESH OLIVARES [facility] [address] [place] [address] 09/17/2021 10:52:43 09/17/2021 11:41:13 Gynecologic examination 43840671 [id number] DINESH OLIVARES [place] [facility] [address] [address] 11/05/2021 12:01:26 11/05/2021 12:03:03 Mammographic mass of breast 377545210 [id number] DINESH OLIVARES [facility] [address] [place] [address] 12/23/2021 10:38:54 12/23/2021 17:27:14 Heterogeneously dense breast composition 180029172 [id number] Kervin Rodriguez MD [facility] [address] [place] [address] 01/26/2022 18:58:52 01/26/2022 19:16:31 Essential hypertension 17037616 Renewal of prescription 819047364 Prediabetes 780046192 [id number] Laura Goodson MD [facility] [address] [place] [address] 01/11/2023 14:15:09 01/11/2023 14:46:57 Adult health examination 314355618 Essential hypertension 44499704 Renewal of prescription 953426119 Health Concerns Section Related Observation LastModified by Organization Detai ls LastModified Time None Recorded Concern Status LastModified by Organization Details LastModified Time None Recorded Advance Directives Directive None Recorded Payers Encounter Date Sequence Insurance Name Policy Number Policy Montoya Covered Member ID Montoya Member ID Guarantor Name 01/26/2022 SLIDING FEE SCHEDULE - DISCOUNT Marcello Alexis José 11/05/2021 SLIDING FEE SCHEDULE - DISCOUNT Marcello Alexis José 09/17/2021 SLIDING FEE SCHEDULE - DISCOUNT Marcello Alexis José 07/28/2021 SLIDING FEE SCHEDULE - DISCOUNT Marcello Alexis José 12/04/2020 SLIDING FEE SCHEDULE - DISCOUNT Marcello Alexis José Notes Date Note Type Note Provider Name and Address Organization Details Recorded Time 12/04/2020 text/html HPI Notes: no problems, not sob, no chest pain, last PAP 2+years ago and normal, father has had a kidney transplant Kervin Rodriguez MD [address] [place], [address], [facility] [employer] 12/04/2020 11:02:33 07/28/2021 text/html HPI Notes: compliant with meds prescribed else where, avoids salt Kervin Rodriguez MD [address] [place], [address], [facility] [employer] 07/28/2021 20:10:04 09/17/2021 text/html HPI Notes: Barbara interpreted. Pt notes no concerns. 46 y.o. 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 Gynecologic ROS: denies vaginal discharge, itching, odor, irritation, pelvic pain, abnormal bleeding. May a little itching around time of period, but non-problematic. She had tubal ligation. DINESH OLIVARES [address] [place], [address], [facility] [employer] 09/17/2021 11:55:34 11/05/2021 text/html HPI Notes: Melissa man called pt with [employer] interpreting to discuss abn finding on mammogram result. DINESH OLIVARES [address] [place], [address], [facility] [employer] 11/05/2021 12:03:07 12/23/2021 text/html HPI Notes: Melissa man called pt with TV interpreting to provide additional diagnostic test results after abnormal mammogram. DINESH OLIVARES [address] [place], [address], [facility] [employer] 12/23/2021 10:47:32 01/11/2023 text/html HPI Notes: Marcello is in for [facility] breast exam. No concerns. Abnormal mammogram last year, diagnostic reassuring. Works at [employer], lives with and 2 children. Nonsmoker. On BP medications, tolerating these well with BP at goal. Laura Goodson MD [address] [place], [address], [facility] [employer] 01/11/2023 14:52:37 OBGyn Episode No OBEpisode recorded.
== END 2023-07-05 08:02 | disposition home or self-care (01) ==
PROVIDERS: Emergency Provider Family Medicine; PCP Family Medicine
DX: N20.1 Calculus of ureter (principal)
CPT/HCPCS: 36415; 74176; 80048; 80076; 81001; 81003; 81025; 83690; 85025; 86140; 87086; 96374; 96375; 99284; J1885; J2405